=== PATIENT | male | born 1940 | race Caucasian/White ===

== ENCOUNTER 2017-08-14 12:24 | Emergency (ER) | payer MEDICARE, OTHER ==
[~2017-08-14] VITALS: Ht 165.1 cm; Wt 6.0 kg
[2017-08-14 12:53] LABS: HEMATOCRIT 29.8 % (39.0-50.0); HEMOGLOBIN 9.7 g/dl (14.0-18.0); IMMATURE GRANULOCYTES 0.9 % (0.0-1.0); MEAN CELL VOLUME 94.6 fL CALC (80.0-100.0); MEAN CORPUSCULAR HGB 30.8 pG CALC (26.0-32.0); MEAN CORPUSCULAR HGB CONC 32.6 g/L CALC (32.0-36.0); NEUT# 10.12 thou/uL (1.82-7.42); RED BLOOD COUNT 3.15 mill/uL (4.70-6.10); RED CELL DISTRI WIDTH 17.8 % (11.5-15.5)
[2017-08-14 13:04] LABS: ALBUMIN 2.3 g/dL (3.2-5.0); ALKALINE PHOSPHATASE 120 u/l (38-126); ANION GAP 10 (6-22 (CALC)); BILIRUBIN, TOTAL 0.4 mg/dL (0.0-1.4); BUN 14 mg/dL (8-23); BUN/CREATININE RATIO 15 (12-20 (CALC)); CALCIUM 8.7 mg/dL (8.4-10.2); CARBON DIOXIDE 22 mmol/l (22-30); CHLORIDE 111 mmol/l (95-108); CREATININE 0.9 mg/dL (0.7-1.3); GFR > 60 ML/MIN (>=60 (CALC)); GFR FOR AFR.AMER. > 60 ML/MIN (>=60 (CALC)); GLUCOSE 99 mg/dL (82-115); SGOT/AST 21 u/l (19-48); SGPT/ALT 22 u/l (11-66); SODIUM 139 mmol/l (137-146); TOTAL PROTEIN 5.2 g/dL (6.3-8.2)
[2017-08-14 13:16] LABS: ACT PARTIAL THROMBO TIME 27.4 SECONDS (20.0-32.5); MYOGLOBIN 34 ng/mL (0 - 121); PROTHROMBIN TIME 11.6 SECONDS (9.0-12.5)
[2017-08-14 13:51] LABS: URINE BILIRUBIN - DIPSTICK NEGATIVE (NEGATIVE); URINE BLOOD DIPSTICK NEGATIVE (NEGATIVE); URINE COLOR YELLOW; URINE GLUCOSE - DIPSTICK NEGATIVE (NEGATIVE); URINE KETONE NEGATIVE (NEGATIVE); URINE LEUK ESTERASE NEGATIVE (NEGATIVE); URINE NITRITE - DIPSTICK NEGATIVE (Negative); URINE PROTEIN - DIPSTICK TRACE mg/dL (NEG-TRACE); URINE SPECIFIC GRAVITY >=1.030; URINE UROBILINOGEN - DIPSTICK 0.2 E.U./dL (0.2)
[2017-08-14 13:54] LABS: URINE CLARITY CLEAR
[2017-08-14] MEDS ORDERED: OMEPRAZOLE10 MG PO (15:19)
[2017-08-14] MEDS ORDERED: TAMSULOSIN0.4 MG PO (15:20)
[2017-08-14] MEDS ORDERED: LINEZOLID600 MG PO (15:20)
[2017-08-14] MEDS ORDERED: [UNRECOGNIZED DRUG - MIXTURE] IV (15:22)
[2017-08-14] MEDS ORDERED: ACCUPRIL5 MG PO (15:23)
[2017-08-14 15:41] VITALS: BP 164/93
== END 2017-08-14 15:41 | disposition home or self-care (01) ==
LOC: ED 12:24
PROVIDERS: Emergency Medicine
DX: K92.2 Gastrointestinal hemorrhage, unspecified (principal); J18.9 Pneumonia, unspecified organism; R64 Cachexia; C79.89 Secondary malignant neoplasm of other specified sites; C15.9 Malignant neoplasm of esophagus, unspecified; R94.31 Abnormal electrocardiogram [ECG] [EKG]; R53.1 Weakness